=== PATIENT | male | born 1940 | race Caucasian/White ===

== ENCOUNTER 2017-02-27 14:58 | Inpatient (IN) | payer OTHER, MEDICAID ==
[~2017-02-27] VITALS: Ht 154.9 cm; Wt 54.4 kg
[2017-02-27 15:14] VITALS: BP_SYST 82
[2017-02-27] MEDS ORDERED: NOREPINEPHRINE BITARTRATE 8 MG in NS 246 ML IV ONE (15:45)
[2017-02-27 16:23] LABS: BASOPHILS # (AUTO) 0.1 K/uL (0.0-0.2); BASOPHILS % (AUTO) 0.6 % (0.0-2.0); EOSINOPHILS # (AUTO) 0.4 K/uL (0.0-0.4); HEMATOCRIT 40.3 % (36-54); HEMOGLOBIN 13.2 g/dL (14.0-18.0); LYMPHOCYTES % (AUTO) 17.2 % (20.5-51.5); MEAN CORPUSCULAR HEMOGLOBIN 32 pg (27-31); MEAN CORPUSCULAR HGB CONC 33 % (32-36); MEAN CORPUSCULAR VOLUME 97 fL (79.0-98.0); MONOCYTES # (AUTO) 0.8 K/uL (0.0-1.0); MONOCYTES % (AUTO) 7.1 % (1.7-9.3); NEUTROPHILS # (AUTO) 8.4 K/uL (1.8-7.7); NEUTROPHILS % (AUTO) 72.1 % (40.0-70.0); PLATELET COUNT (AUTO) 359 K/uL (130-430); RED BLOOD CELL COUNT(AUTO) 4.17 MIL/uL (4.2-6.2); RED CELL DISTRIBUTION WIDTH 12.3 % (9.0-15.0); WHITE BLOOD COUNT (AUTO) 11.7 K/uL (4.8-10.8)
[2017-02-27 16:49] LABS: ANION GAP 9 (5-15); CALCIUM 10.3 mg/dL (8.4-11.0); CHLORIDE 102 mmol/L (98-107); CREATININE 0.74 mg/dL (0.55-1.30); GLUCOSE 132 mg/dL (70-99); POTASSIUM 4.6 mmol/L (3.5-5.1); SODIUM SERUM 138 mmol/L (136-145); UREA NITROGEN, BLOOD 40 mg/dL (8-21)
[2017-02-27 16:57] LABS: ALANINE AMINOTRANSFERASE 35 U/L (12-78); ALBUMIN 2.6 g/dL (3.4-4.8); ASPARTATE AMINOTRANSFERASE 19 U/L (10-37); TOTAL BILIRUBIN 0.2 mg/dL (0.0-1.0)
[2017-02-27 18:18] VITALS: BP_SYST 88
[2017-02-27] MEDS ORDERED: FAMO20TA8 GT (18:49)
[2017-02-27] MEDS ORDERED: PHEN100C4 GT (18:49)
[2017-02-27] MEDS ORDERED: IPRA3AMP9 INH (18:53)
[2017-02-27] MEDS ORDERED: GLU500 GT (18:53)
[2017-02-27] MEDS ORDERED: SIMV20TA2 GT (18:53)
[2017-02-27] MEDS ORDERED: DONE10TA44 GT (18:53)
[2017-02-27] MEDS ORDERED: CHOL3000 GT (18:57)
[2017-02-27] MEDS ORDERED: MULT240L GT (18:57)
[2017-02-27] MEDS ORDERED: CALC-1094 GT (18:57)
[2017-02-27] MEDS ORDERED: LISI-652 GT (18:57)
[2017-02-27] MEDS ORDERED: VITD400 GT (18:57)
[2017-02-27] MEDS ORDERED: THIA100T13 GT (18:57)
[2017-02-27] MEDS ORDERED: FURO-150 GT (18:57)
[2017-02-27] MEDS ORDERED: TYLL650 GT (19:02)
[2017-02-27] MEDS ORDERED: CLOP75TA2 GT (19:02)
[2017-02-27] MEDS ORDERED: CARV6.2554 GT (19:02)
[2017-02-27] MEDS ORDERED: ISO10 GT (19:02)
[2017-02-27] MEDS ORDERED: ZOLPIDEM TARTRATE 5 MG TABLET PO PRN (19:30)
[2017-02-27] MEDS ORDERED: ACETAMINOPHEN 325 MG TABLET PO PRN (19:30)
[2017-02-27] MEDS ORDERED: ONDANSETRON HCL 4 MG/2 ML VIAL IVP PRN (19:30)
[2017-02-27] MEDS ORDERED: LORazepam 2 MG/ML VIAL IVP PRN (19:30)
[2017-02-27] MEDS ORDERED: MORPHINE 2 MG/ML INJ. SYRINGE IVP PRN ×2 (19:30)
[2017-02-27] MEDS ORDERED: POTASSIUM CHLORIDE 20 MEQ TAB.PRT.SR PO PRN (19:30)
[2017-02-27] MEDS ORDERED: IPRATROPIUM/ALBUTEROL SULFATE 3 ML AMPUL.NEB INH PRN (19:30)
[2017-02-27] MEDS ORDERED: DEXTROSE 50% JECT 50 ML DISP.SYRIN IVP PRN (19:30)
[2017-02-27] MEDS ORDERED: DOCUSATE SODIUM 100 MG CAPSULE PO PRN (19:30)
[2017-02-27] MEDS ORDERED: MAGNESIUM SULFATE 50 ML IV PRN (19:30)
[2017-02-27 20:23] VITALS: BP_SYST 104
[2017-02-27] MEDS: NACL 0.9% 1,000 ML IV SCH (20:29)
[2017-02-27] MEDS: PHENYTOIN 100 MG CAPSULE GT SCH (21:14)
[2017-02-27] MEDS: DONEPEZIL HCL 5 MG TABLET (ARICEPT) GT SCH (21:14)
[2017-02-27] MEDS: ISOSORBIDE DINITRATE 10 MG TABLET (ISORDIL) GT SCH (21:14)
[2017-02-27] MEDS: SIMVASTATIN 20 MG TABLET GT SCH (21:14)
[2017-02-27] MEDS: INSULIN ASPART 100 UNITS/ML, 10 ML VIAL (NovoLOG) SUBCUT PRN (21:17)
[2017-02-27] MEDS: HEPARIN SODIUM,PORCINE 5000 UNITS/ML VIAL SUBCUT SCH (21:19)
[2017-02-27 21:50] VITALS: BP_SYST 104
[2017-02-28 02:33] VITALS: BP_SYST 129
[2017-02-28 03:21] VITALS: BP_SYST 130
[2017-02-28 06:34] LABS: BASOPHILS % (AUTO) 0.5 % (0.0-2.0); LYMPHOCYTES # (AUTO) 2.2 K/uL (1.0-5.5); NEUTROPHILS # (AUTO) 6.5 K/uL (1.8-7.7)
[2017-02-28] MEDS: NACL 0.9% 1,000 ML IV SCH (06:37)
[2017-02-28] MEDS: INSULIN ASPART 100 UNITS/ML, 10 ML VIAL (NovoLOG) SUBCUT PRN ×3 (06:38→17:50)
[2017-02-28 06:44] LABS: EOSINOPHILS # (AUTO) 0.3 K/uL (0.0-0.4); EOSINOPHILS % (AUTO) 3.2 % (0.0-4.0); HEMATOCRIT 36.2 % (36-54); HEMOGLOBIN 12.3 g/dL (14.0-18.0); LYMPHOCYTES % (AUTO) 22.3 % (20.5-51.5); MEAN CORPUSCULAR HEMOGLOBIN 32 pg (27-31); MEAN CORPUSCULAR HGB CONC 34 % (32-36); MEAN CORPUSCULAR VOLUME 95 fL (79.0-98.0); MONOCYTES # (AUTO) 0.7 K/uL (0.0-1.0); MONOCYTES % (AUTO) 7.6 % (1.7-9.3); NEUTROPHILS % (AUTO) 66.4 % (40.0-70.0); PLATELET COUNT (AUTO) 311 K/uL (130-430); RED BLOOD CELL COUNT(AUTO) 3.82 MIL/uL (4.2-6.2); RED CELL DISTRIBUTION WIDTH 12.5 % (9.0-15.0); WHITE BLOOD COUNT (AUTO) 9.7 K/uL (4.8-10.8)
[2017-02-28 06:57] LABS: ANION GAP 9 (5-15); CALCIUM 9.5 mg/dL (8.4-11.0); CHLORIDE 103 mmol/L (98-107); GLUCOSE 227 mg/dL (70-99); POTASSIUM 4.4 mmol/L (3.5-5.1); SODIUM SERUM 139 mmol/L (136-145); UREA NITROGEN, BLOOD 33 mg/dL (8-21)
[2017-02-28] MEDS ORDERED: FUROSEMIDE 20 MG TABLET GT SCH (09:00)
[2017-02-28] MEDS ORDERED: PANTOPRAZOLE SODIUM 40 MG TAB PO SCH (09:00)
[2017-02-28] MEDS: PHENYTOIN 100 MG CAPSULE GT SCH ×2 (09:03→20:16)
[2017-02-28] MEDS: ISOSORBIDE DINITRATE 10 MG TABLET (ISORDIL) GT SCH ×3 (09:04→20:16)
[2017-02-28] MEDS: LISINOPRIL 5 MG TABLET GT SCH (09:05)
[2017-02-28] MEDS: metFORMIN HCL 500 MG TABLET GT SCH ×2 (09:07→17:46)
[2017-02-28] MEDS: HEPARIN SODIUM,PORCINE 5000 UNITS/ML VIAL SUBCUT SCH ×2 (09:09→20:18)
[2017-02-28 12:09] LABS: BILIRUBIN,URINE NEGATIVE (NEGATIVE); BLOOD, URINE 1+ (NEGATIVE); CLARITY/URINE CLEAR (CLEAR); COLOR,URINE YELLOW (YELLOW); GLUCOSE,URINE NEGATIVE (NEGATIVE); KETONES,URINE NEGATIVE (NEGATIVE); LEUKOCYTE ESTERASE ,URINE NEGATIVE (NEGATIVE); NITRITE, URINE NEGATIVE (NEGATIVE); PROTEIN URINE NEGATIVE (NEGATIVE); UROBILINOGEN,URINE 0.2 (0.2-1.0)
[2017-02-28 12:16] LABS: BACTERIA,URINE FEW /HPF (None Seen); MUCUS,URINE 1+ /LPF (None Seen); WBC,URINE 0-3 /HPF (0-3)
[2017-02-28 12:45] VITALS: BP_SYST 100
[2017-02-28 16:35] VITALS: BP_SYST 111
[2017-02-28] MEDS: DONEPEZIL HCL 5 MG TABLET (ARICEPT) GT SCH (20:16)
[2017-02-28] MEDS: MUPIROCIN 2% TOPICAL OINTMENT 22 GM NS SCH (20:16)
[2017-02-28] MEDS: SIMVASTATIN 20 MG TABLET GT SCH (20:16)
[2017-02-28 20:20] VITALS: BP_SYST 102
[2017-03-01] VITALS: BP_SYST 130
[2017-03-01 03:14] VITALS: BP_SYST 131
[2017-03-01] MEDS: INSULIN ASPART 100 UNITS/ML, 10 ML VIAL (NovoLOG) SUBCUT PRN ×2 (06:06→12:11)
[2017-03-01 06:20] LABS: BASOPHILS # (AUTO) 0.1 K/uL (0.0-0.2); BASOPHILS % (AUTO) 0.5 % (0.0-2.0); EOSINOPHILS # (AUTO) 0.3 K/uL (0.0-0.4); EOSINOPHILS % (AUTO) 3.1 % (0.0-4.0); HEMATOCRIT 36.5 % (36-54); HEMOGLOBIN 12.3 g/dL (14.0-18.0); LYMPHOCYTES # (AUTO) 1.7 K/uL (1.0-5.5); LYMPHOCYTES % (AUTO) 17.2 % (20.5-51.5); MEAN CORPUSCULAR HEMOGLOBIN 32 pg (27-31); MEAN CORPUSCULAR HGB CONC 34 % (32-36); MEAN CORPUSCULAR VOLUME 95 fL (79.0-98.0); MONOCYTES # (AUTO) 0.7 K/uL (0.0-1.0); MONOCYTES % (AUTO) 7.2 % (1.7-9.3); NEUTROPHILS # (AUTO) 7.3 K/uL (1.8-7.7); PLATELET COUNT (AUTO) 295 K/uL (130-430); RED BLOOD CELL COUNT(AUTO) 3.87 MIL/uL (4.2-6.2); RED CELL DISTRIBUTION WIDTH 12.4 % (9.0-15.0); WHITE BLOOD COUNT (AUTO) 10.1 K/uL (4.8-10.8)
[2017-03-01 06:28] LABS: ANION GAP 7 (5-15); CALCIUM 8.9 mg/dL (8.4-11.0); CHLORIDE 100 mmol/L (98-107); CREATININE 0.63 mg/dL (0.55-1.30); GLUCOSE 228 mg/dL (70-99); POTASSIUM 4.3 mmol/L (3.5-5.1); SODIUM SERUM 132 mmol/L (136-145); UREA NITROGEN, BLOOD 23 mg/dL (8-21)
[2017-03-01 08:08] VITALS: BP_SYST 88
[2017-03-01] MEDS ORDERED: PANTOPRAZOLE GRANULES PACKET 40 MG GT SCH (09:00)
[2017-03-01] MEDS ORDERED: BALSAM PERU/CASTOR OIL 60 GM OINT...G. TP SCH (09:00)
[2017-03-01] MEDS: LISINOPRIL 5 MG TABLET GT SCH (09:00)
[2017-03-01] MEDS: MUPIROCIN 2% TOPICAL OINTMENT 22 GM NS SCH (10:06)
[2017-03-01] MEDS: PHENYTOIN 100 MG CAPSULE GT SCH (10:06)
[2017-03-01] MEDS: metFORMIN HCL 500 MG TABLET GT SCH (10:06)
[2017-03-01] MEDS: HEPARIN SODIUM,PORCINE 5000 UNITS/ML VIAL SUBCUT SCH (10:15)
[2017-03-01 11:43] VITALS: BP_SYST 122
[2017-03-01] MEDS ORDERED: ISO10 GT (12:21)
[2017-03-01] MEDS ORDERED: ASPI81TA2 GT (12:22)
[2017-03-01 14:18] VITALS: BP_SYST 105
[2017-03-01 16:18] VITALS: BP_SYST 105
[2017-03-01] MEDS ORDERED: ISOSORBIDE DINITRATE 10 MG TABLET (ISORDIL) GT SCH (21:00)
== END 2017-03-01 17:14 | DRG 391 ==
LOC: SED 14:58 → STU 17:51
PROVIDERS: ADMIT General Practice; ATTEND General Practice
DX: K21.9 Gastro-esophageal reflux disease without esophagitis (principal); G93.41 Metabolic encephalopathy; L89.159 Pressure ulcer of sacral region, unspecified stage; E44.0 Moderate protein-calorie malnutrition; I11.0 Hypertensive heart disease with heart failure; E11.65 Type 2 diabetes mellitus with hyperglycemia; I50.9 Heart failure, unspecified; R13.10 Dysphagia, unspecified; E87.1 Hypo-osmolality and hyponatremia; M94.0 Chondrocostal junction syndrome [Tietze]; G30.9 Alzheimer's disease, unspecified; F02.80 Dementia in other diseases classified elsewhere, unspecified severity, without behavioral disturbance, psychotic disturbance, mood disturbance, and anxiety; I25.10 Atherosclerotic heart disease of native coronary artery without angina pectoris; I25.2 Old myocardial infarction; Z87.891 Personal history of nicotine dependence; Z68.22 Body mass index [BMI] 22.0-22.9, adult; Z88.0 Allergy status to penicillin; Z86.73 Personal history of transient ischemic attack (TIA), and cerebral infarction without residual deficits; Z93.1 Gastrostomy status
CPT/HCPCS: 36415; 71010; 80048; 80053; 81000-TC; 82962; 83036; 83735-TC; 83880; 84484; 85025; 87081; 93005; 94640; 94760; 99285; J1644; J1815; J7030